=== PATIENT | female | born 1985 | race African-American/Black ===

== ENCOUNTER 2017-04-06 11:06 | Emergency (ER) | payer MEDICAID ==
[2017-04-06 11:14] VITALS: BP 117/78
[2017-04-06] MEDS ORDERED: HYDROCODONE/ACETAMINOPHEN 5-325 MG TABLET PO ONE (11:36)
--- NOTE | 2017-04-06 11:37 | ER Document Report ---
ED Medical Screen (RME) - General Chief Complaint: Abdominal Pain Stated Complaint: ABDOMINAL PAIN Time Seen by Provider: 04/06/17 11:24 Mode of Arrival: Ambulatory Information source: Patient TRAVEL OUTSIDE OF THE [place] IN LAST 30 DAYS: No - HPI Patient complains to provider of: pelvic pain, vaginal discharge Notes: 04/06/17 11:36 Patient is a 32-year-old female presenting to the emergency room complaining of pelvic pain with vaginal bleeding with strong odor it has been going on since March 23 - Related Data Allergies/Adverse Reactions: No Known Allergies Allergy (Verified 04/06/17 11:11) Past Medical History Renal/ Medical History: Denies: Hx Peritoneal Dialysis Physical Exam - Vital signs Vitals: Temp Pulse Resp BP Pulse Ox 98.2 F 89 16 117/78 100 04/06/17 11:11 04/06/17 11:11 04/06/17 11:11 04/06/17 11:11 04/06/17 11:11 Course - Vital Signs Vital signs: Temp Pulse Resp BP Pulse Ox 98.2 F 89 16 117/78 100 04/06/17 11:11 04/06/17 11:11 04/06/17 11:11 04/06/17 11:11 04/06/17 11:11
[2017-04-06 12:14] LABS: ABSOLUTE BASOPHILS # (AUTO) 0.1 10^3/uL (0.0-0.2); ABSOLUTE EOSINOPHILS # (AUTO) 0.1 10^3/uL (0.0-0.6); ABSOLUTE LYMPHOCYTES (AUTO) 2.6 10^3/uL (0.5-4.7); ABSOLUTE MONOCYTES (AUTO) 0.5 10^3/uL (0.1-1.4); ABSOLUTE NEUT (AUTO) 3.7 10^3/uL (1.7-8.2); BASOPHILS % (AUTO) 0.8 % (0-2); EOSINOPHILS % (AUTO) 1.1 % (0-6); HEMATOCRIT 42.3 % (36.0-47.0); HEMOGLOBIN 14.4 g/dL (12.0-15.5); HGB HCT DIFFERENCE 0.9; LYMPHOCYTES % (AUTO) 37.7 % (13-45); MEAN CORPUSCULAR VOLUME 79 fl (80-97); MONOCYTES % (AUTO) 7.1 % (3-13); RED BLOOD COUNT 5.33 10^6/uL (3.72-5.28); RED CELL DISTRIBUTION WIDTH 14.5 % (11.5-14.0); SEGMENTED NEUTROPHILS % (AUTO) 53.3 % (42-78)
[2017-04-06 12:28] LABS: ALANINE AMINOTRANSFERASE 19 U/L (9-52); ALBUMIN 4.8 g/dL (3.5-5.0); ALKALINE PHOSPHATASE 47 U/L (38-126); ANION GAP 13 (5-19); ASPARTATE AMINO TRANSFERASE 15 U/L (14-36); BILIRUBIN,DIRECT 0.3 mg/dL (0.0-0.4); BILIRUBIN,TOTAL 0.5 mg/dL (0.2-1.3); BLOOD UREA NITROGEN 3 mg/dL (7-20); CARBON DIOXIDE 29 mmol/L (22-30); CHLORIDE 102 mmol/L (98-107); GLUCOSE 83 mg/dL (75-110); LIPASE 20.9 U/L (23-300); POTASSIUM 3.8 mmol/L (3.6-5.0); SODIUM 143.7 mmol/L (137-145); TOTAL PROTEIN 7.7 g/dL (6.3-8.2)
[2017-04-06 12:37] LABS: APPEARANCE,URINE CLEAR; BILIRUBIN,URINE NEGATIVE (NEGATIVE); GLUCOSE, URINE NEGATIVE (NEGATIVE); KETONES,URINE TRACE mg/dL (NEGATIVE); LEUKOCYTE ESTERASE,URINE TRACE (NEGATIVE); NITRITE,URINE NEGATIVE (NEGATIVE); PROTEIN,URINE NEGATIVE (NEGATIVE); URINE SPECIFIC GRAVITY 1.009; UROBILINOGEN,URINE NEGATIVE mg/dL (<2.0)
--- NOTE | 2017-04-06 13:52 | ER Document Report ---
ED GI/ - General Chief Complaint: Abdominal Pain Stated Complaint: ABDOMINAL PAIN Time Seen by Provider: 04/06/17 11:24 Mode of Arrival: Ambulatory Notes: 32 yo female c/o pelvic pain and low back pain, abnormal vaginal bleeding after normal mensses, foul smelling discharge. Condom broke with intercourse 6 weeks ago. No fever. No dysuria. Hx PID. labs rsulted, positive gonorrhea, negative chlmydia and urine. TRAVEL OUTSIDE OF THE [place] IN LAST 30 DAYS: No - Related Data Allergies/Adverse Reactions: No Known Allergies Allergy (Verified 04/06/17 11:11) Home Medications: Current Home Medications Dextroamphetamine/Amphetamine [Adderall Xr 20 mg Capsule] 20 mg PO DAILY [History] Past Medical History - General Information source: Patient - Social History Smoking Status: Current Every Day Smoker Chew tobacco use (# tins/day): No Frequency of alcohol use: None Drug Abuse: None Lives with: Family Family History: Reviewed & Not Pertinent - Medical History Notes: PID Renal/ Medical History: Denies: Hx Peritoneal Dialysis Surgical Hx: Negative - Immunizations Hx Diphtheria, Pertussis, Tetanus Vaccination: Yes - 2014 Review of Systems - Review of Systems Constitutional: No symptoms reported EENT: No symptoms reported Cardiovascular: No symptoms reported Respiratory: No symptoms reported Gastrointestinal: No symptoms reported Genitourinary: No symptoms reported Female Genitourinary: See HPI Musculoskeletal: No symptoms reported Skin: No symptoms reported Hematologic/Lymphatic: No symptoms reported Neurological/Psychological: No symptoms reported Physical Exam - Vital signs Vitals: Temp Pulse Resp BP Pulse Ox 98.2 F 89 16 117/78 100 04/06/17 11:11 04/06/17 11:11 04/06/17 11:11 04/06/17 11:11 04/06/17 11:11 Interpretation: Normal - General General appearance: Appears well, Alert - HEENT Head: Normocephalic, Atraumatic Eyes: Normal Pupils: PERRL - Respiratory Respiratory status: No respiratory distress Chest status: Nontender Breath sounds: Normal Chest palpation: Normal - Cardiovascular Rhythm: Regular Heart sounds: Normal auscultation Murmur: No - Abdominal Inspection: Normal Distension: No distension Bowel sounds: Normal Tenderness: Tender - mild suprpubic Organomegaly: No organomegaly - Back Back: Normal, Nontender. No: CVA tenderness - Extremities General upper extremity: Normal inspection, Nontender, Normal color, Normal ROM , Normal temperature General lower extremity: Normal inspection, Nontender, Normal color, Normal ROM , Normal temperature, Normal weight bearing. No: Kapil's sign - Neurological Neuro grossly intact: Yes Cognition: Normal Orientation: AAOx4 [place] Coma Scale Eye Opening: Spontaneous [place] Coma Scale Verbal: Oriented [place] Coma Scale Motor: Obeys Commands [place] Coma Scale Total: 15 Speech: Normal Motor strength normal: LUE, RUE, LLE, RLE Sensory: Normal - Psychological Associated symptoms: Normal affect, Normal mood - Skin Skin Temperature: Warm Skin Moisture: Dry Skin Color: Normal Skin irregularity: negative: Rash Course - Re-evaluation Re-evalutation: 04/06/17 14:30 Patient states that she is unable to wait for the pelvic ultrasound that is recommended, she is not that tender so I will treat her for pelvic inflammatory disc disease but told her that she must return to the emergency room if she develops fever or increased pain to rule out a pelvic abscess. - Vital Signs Vital signs: Temp Pulse Resp BP Pulse Ox 98.2 F 89 16 117/78 100 04/06/17 11:11 04/06/17 11:11 04/06/17 11:11 04/06/17 11:11 04/06/17 11:11 - Laboratory Result Diagrams: 04/06/17 11:53 04/06/17 11:53 Laboratory results interpreted by me: 04/06/17 04/06/17 04/06/17 11:53 11:53 11:53 RBC 5.33 H MCV 79 L RDW 14.5 H BUN 3 L Lipase 20.9 L Urine Ketones TRACE H Urine Blood LARGE H Ur Leukocyte Esterase TRACE H N.gonorrhoeae DNA (PCR) 04/06/17 12:31 RBC MCV RDW BUN Lipase Urine Ketones Urine Blood Ur Leukocyte Esterase N.gonorrhoeae DNA (PCR) DETECTED H Discharge - Discharge Clinical Impression: Gonorrhea, Pelvic pain, midcycle vaginal bleeding, pelvic inflammatory disease Condition: Good Disposition: HOME, SELF-CARE Instructions: Doxycycline ([facility]), Gonorrhea ([facility]), Metronidazole ([facility]), Pelvic Inflammatory Disease ([facility]), Rocephin ([facility]) Additional Instructions: ex partner needs treatment for gonorrhea your chlamydia test was negative adding flagyl and doxycycline to the rocephin for 10 days to er if worse Please complete the patient satisfaction survey if you get one, and return it.. If you do not receive a survey, then you can go to the [facility] website, [email or web address] and place your comments about your very good care. Thank you very much. It was a pleasure being your medical provider today. Prescriptions: Doxycycline Hyclate 100 mg PO BID #28 tablet Metronidazole [Flagyl 500 mg Tablet] 500 mg PO BID #28 tablet Referrals: ALVARO FULLER MD [ACTIVE STAFF] - Follow up as needed
[2017-04-06 14:18] LABS: CHLAM PCR NOT DETECTED (NOT DETECT)
[2017-04-06] MEDS ORDERED: CEFTRIAXONE INJ 250 MG VIAL IM ONE (14:21)
[2017-04-06] MEDS ORDERED: DOXYCYCLINE HYCLATE 100 MG TABLET PO ONE (14:32)
[2017-04-06] MEDS ORDERED: ONDANSETRON 4 MG TAB.RAPDIS PO ONE (14:32)
[2017-04-06] MEDS ORDERED: METRONIDAZOLE 500 MG TABLET PO ONE (14:32)
== END 2017-04-06 14:52 | disposition home or self-care (01) ==
LOC: ER 11:06
DX: A54.9 Gonococcal infection, unspecified (principal); N73.9 Female pelvic inflammatory disease, unspecified; R10.2 Pelvic and perineal pain; M54.5 Low back pain; N93.8 Other specified abnormal uterine and vaginal bleeding; F17.200 Nicotine dependence, unspecified, uncomplicated
CPT/HCPCS: 99284; 96372; 36415; 87086; 83690; 84703; 85025; 80053; 81001; 87491; 87591; J3490 ×2; S0119; J0696